=== PATIENT | male | born 1980 | race Caucasian/White ===

== ENCOUNTER 2016-10-03 08:36 | Emergency (ER) | payer OTHER ==
[~2016-10-03] VITALS: Ht 167.6 cm; Wt 88.5 kg
--- NOTE | 2016-10-03 08:51 | ED CARDIAC/CP/PALPITATIONS ---
History of Present Illness General Chief Complaint: Chest Pain Stated Complaint: COUGH AND CONGESTION X 1WEEK Source: patient Exam Limitations: no limitations Vital Signs & Intake/Output Vital Signs & Intake/Output Vital Signs Date Time Temp Pulse Resp B/P Pulse O2 O2 Flow FiO2 Ox Delivery Rate 10/03 1425 98.3 110 16 119/73 99 Room Air 10/03 1310 98.3 96 16 121/73 100 Room Air 10/03 1041 99.3 92 16 131/61 100 Room Air 10/03 1027 100 10/03 0914 98 Room Air 10/03 0839 98.4 122 18 154/88 98 Room Air Allergies Coded Allergies: No Known Allergies (10/03/16) Reconcile Medications Albuterol Sulfate (Proventil Hfa) 90 MCG HFA.AER.AD 2 PUF INH Q4 SOB Azithromycin (Zithromax) 250 MG TABLET 1 DP PO AD BRONCHITIS 2 the first day followed by 1 for days 2-5 Prednisone (Deltasone) 20 MG TABLET 1 TAB PO BID BRONCHITIS Triage Note: 36 Y/O MALE C/O URI SYMPTOMS X 1 WEEK; NO RELIEF WITH OTC MEDICATIONS. COARSE COUGH NOTED. SAT 97%. AFEBRILE. Triage Nurses Notes Reviewed? yes Onset: Abrupt Duration: day(s): (1last night) Timing: recent history Quality/Severity: pressure Location: central Radiation: no radiation HPI: 46-year-old male comes into emergency room for evaluation of chest pressure or shortness of breath. Patient reports that last week that he was sick with runny nose cough congestion and flulike symptoms. Those symptoms have resolved at this time but last night he noticed he was getting some chest pressure while watching TV. Patient reports that his pressure and symptoms are worse with any type of exertion especially going up stairs. Denies any vomiting or diaphoresis. Denies any hemoptysis. Patient reports that his grandfather had heart problems but he denies any other family history that he is aware of. Patient denies any past medical history other than smoking. Denies any drug use or alcohol use. Denies any other associated symptoms currently. (LOWELL LICEA) Past History Travel History Traveled to [place] past 21 day No Medical History Any Pertinent Medical History? see below for history Neurological: NONE EENT: NONE Cardiovascular: NONE Respiratory: NONE Gastrointestinal: NONE Hepatic: NONE Renal: NONE Musculoskeletal: NONE Psychiatric: NONE Endocrine: NONE Blood Disorders: NONE Cancer(s): NONE MASONRY INSTALLER/Reproductive: NONE Surgical History Surgical History: none Psychosocial History What is your primary language Stateless Tobacco Use: Current Daily Use Daily Tobacco Use Amount/Type: => 5 Cigarettes daily Family History Hx Contributory? No (LOWELL LICEA) Review of Systems Review of Systems Constitutional: Reports: no symptoms. EENTM: Reports: no symptoms. Respiratory: Reports: no symptoms. Cardiovascular: Reports: see HPI. GI: Reports: no symptoms. Genitourinary: Reports: no symptoms. Musculoskeletal: Reports: no symptoms. Skin: Reports: no symptoms. Neurological/Psychological: Reports: no symptoms. Hematologic/Endocrine: Reports: no symptoms. Immunologic/Allergic: Reports: no symptoms. All Other Systems: Reviewed and Negative (LOWELL LICEA) Physical Exam Physical Exam General Appearance: well developed/nourished, no apparent distress, alert Head: atraumatic, normal appearance Eyes: Bilateral: normal appearance, EOMI. Ears, Nose, Throat: normal pharynx, normal ENT inspection Neck: normal inspection Respiratory: normal breath sounds, no respiratory distress Cardiovascular: regular rate/rhythm, tachycardia Gastrointestinal: normal bowel sounds Back: normal inspection Extremities: normal inspection, normal range of motion Neurologic/Psych: awake, alert, oriented x 3, normal gait, normal mood/affect Skin: intact, normal color Core Measures ACS in differential dx? Yes Severe Sepsis Present: No Septic Shock Present: No (LOWELL LICEA) Progress Differential Diagnosis: AMI, aortic dissection, atrial fibrillation, cholecystitis, costochondritis, hyperkalemia, hyperthyroid, hyperventilation, intracranial hemorrhage, musculoskeletal pain, myocarditis, pancreatitis, pericarditis, pneumonia, pneumothorax, pulmonary embolism, PUD/GERD, PVCs/PACs, respiratory failure, rib fracture, sepsis, unstable angina, V-fib/V-Tach, WPW syndrome Plan of Care: Orders Procedure Date/time Status Regular Diet 10/03 D Active TROPONIN LEVEL 10/03 1315 Complete EKG 10/03 1315 Active Telemetry/Stock Parts Inspector 10/03 0851 Active TROPONIN LEVEL 10/03 0851 Complete D-DIMER 10/03 0851 Complete COMPREHENSIVE METABOLIC PANEL 10/03 0851 Complete CBC WITHOUT DIFFERENTIAL 10/03 0851 Complete EKG 10/03 0851 Active Laboratory Tests 10/03/16 1312: Troponin I < 0.01 10/03/16 0912: Anion Gap 12, Estimated GFR 49 L, BUN/Creatinine Ratio 8.8, Glucose 146 H, Calcium 9.5, Total Bilirubin 0.8, AST 29, ALT 51, Alkaline Phosphatase 68, Troponin I < 0.01, Total Protein 7.4, Albumin 4.5, Globulin 2.9, Albumin/ Globulin Ratio 1.6, D-Dimer < 200, CBC w Diff NO MAN DIFF REQ, RBC 4.65 L, MCV 87.6, MCH 30.2, RDW 12.7, MPV 9.7, Gran % 70.9, Lymphocytes % 21.5, Monocytes % 5.1, Eosinophils % 2.0, Basophils % 0.5, Absolute Granulocytes 5.3, Absolute Lymphocytes 1.6, Absolute Monocytes 0.4, Absolute Eosinophils 0.1, Absolute Basophils 0, PUBS MCHC 34.5 Diagnostic Imaging: Viewed by Me: Radiology Read. Discussed w/RAD: Radiology Read. Radiology Impression: SERVICE DATE: 10/03/16 EXAM TYPE: RAD - XRY-CHEST XRAY, PA AND LATERAL EXAMINATION: XR CHEST CLINICAL INFORMATION: Chest pain. Patient states chest pain for one day. COMPARISON: None TECHNIQUE: 2 views of the chest were obtained. FINDINGS: The cardiomediastinal silhouette is within normal limits in size. Lungs bilaterally are symmetrically expanded. There may be slight thickening of the central airways and coarsening of the peribronchovascular lung markings, especially in the right lower lobe, suggesting mild reactive airways disease or bronchitis. No focal consolidation, effusion or pneumothorax is seen. No focal pneumonia, effusion or pneumothorax is seen. Bony structures are unremarkable. IMPRESSION: There may be subtle findings of reactive airways disease or bronchitis. Close clinical correlation requested. DICTATED BY: JIMMY TORRES MD DATE/TIME DICTATED:10/03/16920 IMPROVEMENT INTERN:LIBRA DATE/TIME TRANSCRIBED:10/03/16920 Initial ED EKG: normal intervals, normal p-waves, normal QRS complex, normal sinus rhythm, rate (104), nonspecific ST T wave chg Repeat EKG: unchanged (LOWELL LICEA) Departure Departure Disposition: HOME OR SELF CARE Condition: Stable Clinical Impression Primary Impression: Bronchitis Secondary Impressions: Atypical chest pain Referrals: RONALD MERCEDES,JUAN Hernandez Additional Instructions: Take albuterol, Z-Nino, prednisone as prescribed. Follow-up with primary care doctor. Return if any concerns worsening symptoms. Please follow-up with your primary care doctor for further evaluation of chest pressure if symptoms persist. Information for a braiding machine operator has been provided on discharge instructions. Please go over all results of today's visit with your primary care doctor. Contact your primary care doctor to let them know you were here in the emergency room. There may be nonspecific findings which may not be related to your visit today here in the emergency room but may require further evaluation and chronic monitoring by your primary care doctor. If you had a laceration today the chance of foreign body always remains. You should follow-up with your primary care doctor for recheck in 3-5 days for a wound check. If you had an x-ray done there is a chance that a fracture could have been missed on initial read and you should follow-up with your primary care doctor for repeat x-rays if symptoms persist. If your blood pressure was elevated here in the emergency room please have rechecked by her primary care doctor within the next 48 hours by your primary care doctor. If you were prescribed a narcotic here in the emergency room or any type of controlled substances you're not allowed to drive while taking this medication or operate any type of heavy machinery. Narcotics can make you feel lightheaded dizziness nausea and can cause constipation. You may need to brain picker a stool softener. Thank you for choosing [facility] emergency room. Please return to the emergency room immediately if you have any other concerns worsening of symptoms. Departure Forms: Customer Survey General Discharge Information Prescriptions: Current Visit Scripts Prednisone (Deltasone) 1 TAB PO BID #8 MG Albuterol Sulfate (Proventil Hfa) 2 PUF INH Q4 #1 INHAL Azithromycin (Zithromax) 1 DP PO AD #6 TAB 2 the first day followed by 1 for days 2-5 Comments 10/03/2016 2:28:17 PM Patient clinically looks well. Nontoxic-appearing. Symptoms were related likely to bronchitis. Due to the fact that the patient was having continual chest pressure that the troponin were done which were normal unchanged EKGs. D- dimer negative. No suspicion for pulmonary embolism. Patient clinically looks well. Reevaluated multiple times. Symptoms continued to improve. Case discussed with Dr. shaw. Follow-up with braiding machine operator provided. Return if any other concerns worsening symptoms. Patient understands and agrees with plan of care. (LOWELL LICEA) PA/RISK REDUCTION COUNSELOR Co-Sign Statement Statement: ED Attending supervision documentation- x I saw and evaluated the patient. I have also reviewed all the pertinent lab results and diagnostic results. I agree with the findings and the plan of care as documented in the PA's/RISK REDUCTION COUNSELOR's documentation. [] I have reviewed the ED Record and agree with the PA's/RISK REDUCTION COUNSELOR's documentation. [] Additions or exceptions (if any) to the PAs/RISK REDUCTION COUNSELOR's note and plan are summarized below: [] (UZMA MERCEDES,MARTHA) Critical Care Note Critical Care Note Critical Care Time: non-applicable (LOWELL LICEA)
[2016-10-03 09:18] LABS: ABSOLUTE BASOPHIL COUNT 0 /CUMM (0.0-0.2); ABSOLUTE EOSINOPHIL COUNT 0.1 /CUMM (0.0-0.7); ABSOLUTE GRANULOCYTE CT 5.3 /CUMM (1.4-6.5); ABSOLUTE LYMPH COUNT 1.6 /CUMM (1.2-3.4); ABSOLUTE MONOCYTE COUNT 0.4 /CUMM (0.10-0.60); BASOPHIL % 0.5 % (0.0-2.0); GRANULOCYTE % 70.9 % (42.2-75.2); HEMATOCRIT 40.7 % (42-52); MEAN CORPUSCULAR HGB 30.2 PG (27.0-31.0); MEAN CORPUSCULAR HGB CONC 34.5 G/DL (33.0-37.0); MEAN CORPUSCULAR VOLUME 87.6 FL (80.0-94.0); MEAN PLATELET VOLUME 9.7 FL (7.4-10.4); PLATELET COUNT 200 /CUMM (130-400); RBC DISTRIBUTION WIDTH 12.7 % (11.5-14.5); RED BLOOD CELL CT 4.65 /CUMM (4.70-6.10); WHITE BLOOD CELL COUNT 7.4 /CUMM (4.8-10.8)
--- NOTE | 2016-10-03 09:28 | RADIOLOGY REPORT ---
EXAMINATION: XR CHEST CLINICAL INFORMATION: Chest pain. Patient states chest pain for one day. COMPARISON: None TECHNIQUE: 2 views of the chest were obtained. FINDINGS: The cardiomediastinal silhouette is within normal limits in size. Lungs bilaterally are symmetrically expanded. There may be slight thickening of the central airways and coarsening of the peribronchovascular lung markings, especially in the right lower lobe, suggesting mild reactive airways disease or bronchitis. No focal consolidation, effusion or pneumothorax is seen. No focal pneumonia, effusion or pneumothorax is seen. Bony structures are unremarkable. IMPRESSION: There may be subtle findings of reactive airways disease or bronchitis. Close clinical correlation requested.
[2016-10-03] MEDS ORDERED: ZITHROMAX250 M2 PO (14:22)
[2016-10-03] MEDS ORDERED: DELTASONE20 MG PO (14:22)
[2016-10-03] MEDS ORDERED: PROVENTIL HFA6.7 GM INH (14:22)
[2016-10-03 14:25] VITALS: BP 119/73
== END 2016-10-03 14:29 ==
LOC: ERH 08:36
PROVIDERS: Physician Assistant Medical
DX: J40 Bronchitis, not specified as acute or chronic (principal); R07.89 Other chest pain; Z72.0 Tobacco use
CPT/HCPCS: 1263; 93005; 93010; 96372; J1885